=== PATIENT | female | born 1930 | race Caucasian/White ===

== ENCOUNTER 2018-02-10 05:50 | Inpatient (IN) | payer MEDICARE, OTHER ==
[~2018-02-10] VITALS: Ht 154.9 cm; Wt 61.7 kg
[~2018-02-10 05:50] MED LIST: ALBU18HF INH; BUDE10.2 INH; CART1TAB5 PO; LACT1CAP37 PO; LISI-167 PO; MONT10TA9 PO; MULT-658 PO; TIOT18CA INH; VIT1CAPS10 PO
[2018-02-10 06:53] VITALS: BP 167/76
[2018-02-10] MEDS ORDERED: LACTATED RINGERS 1,000 ML IV SCH (07:03)
[2018-02-10] MEDS ORDERED: FENTANYL PF 250 MCG/5ML ONE (07:09)
[2018-02-10] MEDS ORDERED: ROCURONIUM 10MG/ML,5ML ONE (07:10)
[2018-02-10] MEDS ORDERED: PROPOFOL 10 MG/ML, 20ML ONE (07:10)
[2018-02-10] MEDS ORDERED: NEOSTIGMINE 1 MG/ML, 10ML ONE (07:11)
[2018-02-10] MEDS ORDERED: GLYCOPYRROLATE 0.4 MG/2 ML, 2ML ONE (07:11)
[2018-02-10] MEDS ORDERED: DEXAMETHASONE 4 MG/ML, 1ML ONE ×2 (07:12)
[2018-02-10] MEDS ORDERED: ONDANSETRON 2MG/ML, 2ML ONE ×2 (07:12→12:24)
[2018-02-10] MEDS ORDERED: SODIUM CHLORIDE 0.9% PF 10ML ONE (07:13)
[2018-02-10] MEDS ORDERED: CEFAZOLIN 1,000 MG ONE ×2 (07:13)
[2018-02-10] MEDS ORDERED: LIDOCAINE 2%, 2ML ONE (07:14)
[2018-02-10] MEDS ORDERED: BUPIVACAINE/PF 0.25% ONE (07:17)
[2018-02-10] MEDS ORDERED: INDIGO CARMINE 0.8%, 5ML ONE (07:18)
[2018-02-10] MEDS ORDERED: EPINEPHRINE 1 MG/ML, 1ML ONE (07:18)
[2018-02-10] MEDS ORDERED: THROMBIN 5,000 UNIT VIAL TP ONE (07:18)
[2018-02-10] MEDS ORDERED: METOCLOPRAMIDE 5 MG/ML, 2ML IV PRN (07:30)
[2018-02-10] MEDS ORDERED: DIAZEPAM 5 MG/ML, 2ML IVPush PRN (07:30)
[2018-02-10] MEDS ORDERED: LIDOCAINE-MPF 1%, 2ML INFIL ONE (07:30)
[2018-02-10] MEDS ORDERED: ONDANSETRON 2MG/ML, 2ML IVPush PRN (07:30)
[2018-02-10] MEDS ORDERED: MEPERIDINE/PF 25MG/0.5ML IVPush PRN (07:30)
[2018-02-10] MEDS ORDERED: PROMETHAZINE 12.5 MG SUPP PR PRN (07:30)
[2018-02-10] MEDS ORDERED: hydrALAzine 20 MG/ML, 1ML IV PRN (07:30)
[2018-02-10] MEDS ORDERED: morphine SULFATE 10 MG/ML, 1ML IV PRN (07:30)
[2018-02-10] MEDS ORDERED: LABETALOL 5MG/ML, 20ML IV PRN (07:30)
[2018-02-10] MEDS ORDERED: HYDROmorphone 1 MG/ML, 1ML IV PRN (07:30)
[2018-02-10] MEDS ORDERED: PROMETHAZINE 25 MG/ML, 1ML IV PRN (07:30)
[2018-02-10] MEDS ORDERED: ACETAMINOPHEN 325 MG TABLET PO PRN (07:30)
[2018-02-10] MEDS ORDERED: BUPIVACAINE/PF-EPI 0.25% 1:200K INFIL ONE (09:23)
[2018-02-10] MEDS ORDERED: PHENYLEPHRINE 10 MG/ML ONE (09:33)
[2018-02-10] MEDS ORDERED: ACETAMINOPHEN 650 MG/20.3 ML UDC ONE (12:24)
[2018-02-10] MEDS ORDERED: FENTANYL PF 100 MCG/2ML ONE (12:24)
[2018-02-10] MEDS ORDERED: OXYcodone 5 MG/5 ML ORAL.SOL UDC ONE (12:24)
[2018-02-10] MEDS: FENTANYL PF 100 MCG/2ML IV PRN ×2 (12:34→12:39)
[2018-02-10] MEDS: OXYcodone 5 MG/5 ML ORAL.SOL UDC PO PRN (12:39)
[2018-02-10] MEDS ORDERED: ONDANSETRON 2MG/ML, 2ML IV PRN (14:30)
[2018-02-10] MEDS ORDERED: ONDANSETRON 4 MG TABLET PO PRN (14:30)
[2018-02-10] MEDS ORDERED: MORPHINE SULFATE 4 MG/ML, 1ML IV PRN (14:30)
[2018-02-10] MEDS ORDERED: [UNRECOGNIZED DRUG - REMARK] INH PRN (14:30)
[2018-02-10] MEDS: CEFAZOLIN PMX 1GM/50ML 50 ML IVPB SCH (16:59)
[2018-02-10 18:35] VITALS: BP 91/44
[2018-02-10] MEDS ORDERED: SYMBICORT INH SCH (21:00)
[2018-02-10] MEDS ORDERED: [UNRECOGNIZED DRUG - OTHER] INH PRN (21:37)
[2018-02-10] MEDS: D5%-LACTATED RINGERS 1,000 ML IV SCH (21:48)
[2018-02-10 23:49] VITALS: BP 84/48
[2018-02-11 00:20] VITALS: BP 95/51
[2018-02-11] MEDS: CEFAZOLIN PMX 1GM/50ML 50 ML IVPB SCH (00:58)
[2018-02-11 03:51] VITALS: BP 94/56
[2018-02-11 05:17] LABS: ANION GAP 6 mmol/L (5-15); CALCIUM 7.8 mg/dL (8.5-10.1); CHLORIDE 111 mmol/L (98-107)
[2018-02-11 05:20] LABS: CREATININE 1.56 mg/dL (0.55-1.02)
[2018-02-11] MEDS: D5%-LACTATED RINGERS 1,000 ML IV SCH ×2 (06:35→16:14)
[2018-02-11 08:15] VITALS: BP 112/62
[2018-02-11] MEDS: ENOXAPARIN 30 MG/0.3 ML SQ SCH (08:18)
[2018-02-11] MEDS: LISINOPRIL 10 MG TABLET HOMEMEDPO SCH (08:18)
[2018-02-11] MEDS: SPIRIVA 18 MCG INH SCH (08:21)
[2018-02-11] MEDS: [UNRECOGNIZED DRUG - OTHER] INH SCH (08:21)
[2018-02-11] MEDS: SYMBICORT INH SCH ×2 (08:21→21:00)
[2018-02-11 12:37] VITALS: BP 112/67
[2018-02-11] MEDS: HYDROcodone/APAP 5/325 TABLET PO PRN (12:38)
[2018-02-11 18:35] VITALS: BP 93/54
[2018-02-11] MEDS: OXYcodone 5 MG/5 ML ORAL.SOL UDC PO PRN (21:00)
[2018-02-12 00:29] VITALS: BP 101/59
[2018-02-12] MEDS: OXYcodone 5 MG/5 ML ORAL.SOL UDC PO PRN ×2 (01:34→08:14)
[2018-02-12] MEDS: D5%-LACTATED RINGERS 1,000 ML IV SCH ×2 (01:35→11:41)
[2018-02-12 05:14] LABS: ANION GAP 4 mmol/L (5-15); CALCIUM 7.8 mg/dL (8.5-10.1); CHLORIDE 111 mmol/L (98-107); CREATININE 1.67 mg/dL (0.55-1.02)
[2018-02-12] MEDS: ENOXAPARIN 30 MG/0.3 ML SQ SCH (07:55)
[2018-02-12] MEDS: LISINOPRIL 10 MG TABLET HOMEMEDPO SCH (07:55)
[2018-02-12] MEDS: SPIRIVA 18 MCG INH SCH (07:56)
[2018-02-12] MEDS: [UNRECOGNIZED DRUG - OTHER] INH SCH (07:56)
[2018-02-12] MEDS: SYMBICORT INH SCH (07:56)
[2018-02-12 08:00] VITALS: BP 102/76
[2018-02-12] MEDS: HYDROcodone/APAP 5/325 TABLET PO PRN ×2 (08:19→13:26)
[2018-02-12 13:29] VITALS: BP 115/60
[2018-02-12] MEDS ORDERED: HYDR-3237 PO (14:00)
== END 2018-02-12 15:00 | disposition home or self-care (01) | DRG 658 ==
LOC: ORIP 05:50 → 4NOR 14:00
PROVIDERS: ADMIT Urology; ATTEND Urology
PROC: 8E0W4CZ Robotic Assisted Procedure of Trunk Region, Percutaneous Endoscopic Approach (ICD-10-PCS; 2018-02-10)
PROC: 0TT14ZZ Resection of Left Kidney, Percutaneous Endoscopic Approach (ICD-10-PCS; principal; 2018-02-10 08:00)
DX: C64.2 Malignant neoplasm of left kidney, except renal pelvis (principal); K66.0 Peritoneal adhesions (postprocedural) (postinfection)
CPT/HCPCS: 36415; 71045; 80048; 85014; 85018; 86850; 86900; 88307; C1729; J0171; J0690; J1100; J1650; J2405; J2704; J2710; J3010; J3490; C1760; J2370; J7121